=== PATIENT | male | born 1950 ===

== ENCOUNTER 2023-01-17 07:38 | Day surgery (SDC) | payer OTHER | END 2023-01-17 13:30 | disposition home or self-care (01) | LOC: AMB-ENDOS 07:38 | PROVIDERS: ATTEND Surgery | DX: D12.2 Benign neoplasm of ascending colon (principal); D12.5 Benign neoplasm of sigmoid colon; D37.4 Neoplasm of uncertain behavior of colon; K92.1 Melena; Z20.822 Contact with and (suspected) exposure to COVID-19 ==

== ENCOUNTER 2023-04-12 11:22 | Inpatient (IN) | payer OTHER ==
[~2023-04-12] VITALS: Ht 167.6 cm; Wt 76.2 kg
[2023-04-13] MEDS ORDERED: PLAVIX75 MG PO (13:44)
[2023-04-13] MEDS ORDERED: COZAAR25 MG PO (13:44)
[2023-04-13] MEDS ORDERED: ADULT LOW DOSE81 M1 PO (13:44)
[2023-04-13] MEDS ORDERED: ZYLOPRIM100 M1 PO (13:45)
[2023-04-18] MEDS ORDERED: ALLOPURINOL100 MG (16:13)
[2023-04-18] MEDS ORDERED: CLOPIDOGREL BIS75 MG (16:14)
[2023-04-18] MEDS ORDERED: LOSARTAN POTAS100 MG (16:14)
[2023-04-18] MEDS ORDERED: TAMSULOSIN HCL0.4 MG (16:14)
[2023-04-18] MEDS ORDERED: ATORVASTATIN CA20 MG (16:14)
[2023-04-18] MEDS ORDERED: AMLODIPINE BESYL5 MG (16:14)
[2023-04-24] MEDS ORDERED: INTESTINEX680 M1 PO ×2 (16:29→16:32)
[2023-04-24] MEDS ORDERED: PEPCID AC20 MG PO ×2 (16:29→16:32)
== END 2023-04-24 17:22 | disposition home or self-care (01) | DRG 330 ==
LOC: SURG 04-18 07:16 → O/R 04-18 07:16 → SURG 04-18 10:45
PROVIDERS: ADMIT Surgery; ATTEND Surgery
PROC: 07BB4ZZ Excision of Mesenteric Lymphatic, Percutaneous Endoscopic Approach (ICD-10-PCS; 2023-04-18)
PROC: 0WQF4ZZ Repair Abdominal Wall, Percutaneous Endoscopic Approach (ICD-10-PCS; 2023-04-18)
PROC: 0DTF4ZZ Resection of Right Large Intestine, Percutaneous Endoscopic Approach (ICD-10-PCS; principal; 2023-04-18 15:45)
DX: D12.2 Benign neoplasm of ascending colon (principal); K56.7 Ileus, unspecified; K92.1 Melena; K91.89 Other postprocedural complications and disorders of digestive system; K42.9 Umbilical hernia without obstruction or gangrene; R59.0 Localized enlarged lymph nodes; Z20.822 Contact with and (suspected) exposure to COVID-19